=== PATIENT | female | born 1990 | race Caucasian/White ===

== ENCOUNTER 2021-04-28 03:59 | Emergency (ER) | payer OTHER ==
[~2021-04-28] VITALS: Ht 154.9 cm; Wt 54.4 kg
[2021-04-28] MEDS ORDERED: FLUOXETINE HCL20 M1 PO (04:09)
[2021-04-28 05:05] LABS: ABSOLUTE NEUTROPHILS 8.4 thou/uL (1.4-8.2); BASOPHILS 0.2 % (0.0-2.0); EOSINOPHILS 0.1 % (0.0-3.0); HEMATOCRIT 42.5 % (37.0-47.0); MCH 28.1 pg (26.0-34.0); MCV 85.1 fL (80.0-100.0); MONOCYTES 2.4 % (1.0-8.0); PLATELET COUNT 272 thou/uL (150-400); POLYS 94.3 % (36.0-66.0); RDW 14.9 % (10.5-14.5); WBC 8.9 thou/uL (4.0-11.0)
[2021-04-28 05:08] LABS: CALCIUM 9.2 mg/dL (8.5-10.1); CREATININE 0.8 mg/dL (0.6-1.0); POTASSIUM 4.1 mmol/L (3.5-5.1)
[2021-04-28 05:14] LABS: TOTAL BILIRUBIN 0.3 mg/dL (0.2-1.0); TOTAL PROTEIN 7.4 g/dL (6.4-8.2)
[2021-04-28] MEDS ORDERED: ZOFRAN ODT4 MG PO ×2 (05:34→07:15)
[2021-04-28 07:12] VITALS: BP 112/47
== END 2021-04-28 07:27 | disposition home or self-care (01) ==
LOC: ER 03:59
PROVIDERS: Emergency Medicine
DX: R11.2 Nausea with vomiting, unspecified (principal); R19.7 Diarrhea, unspecified; Z98.890 Other specified postprocedural states; Z79.899 Other long term (current) drug therapy; Z88.1 Allergy status to other antibiotic agents

== ENCOUNTER → 2021-05-21 | Outpatient (CLI) | payer OTHER ==
[~2021-05-21] MED LIST: FLUOXETINE HCL20 M1 PO; ZOFRAN ODT4 MG PO
== END ==
LOC: BC 05-18 13:54 → ULTRA 09:49
PROVIDERS: ATTEND Obstetrics & Gynecology
DX: N63.20 Unspecified lump in the left breast, unspecified quadrant (principal)